=== PATIENT | male | born 1940 | race Caucasian/White ===

== ENCOUNTER 2017-12-03 20:01 | Emergency (ER) | payer OTHER ==
[2017-12-03] MEDS ORDERED: LIDOCAINE 1% W/EPI 1:100,000 MDV 50 ML VIAL ONE (20:54)
[2017-12-03] MEDS ORDERED: TETANUS & DIPHTHERIA TOX,ADULT 0.5 ML VIAL ONE (20:54)
--- NOTE | 2017-12-03 22:16 | EDPHYS ---
Physician Documentation [facility] Name: Evelio Tapia Jr Age: 77 yrs Sex: Male : 1940 Arrival Date: 12/03/2017 Time: 20:05 Bed 15 Private MD: Riky Gallegos V ED Physician Jaleel Ochoa HPI: 12/03 22:10 This 77 yrs old Male presents to ER via Ambulatory with complaints of Fall gs Injury, Knee Injury, Elbow Injury. 22:10 Details of fall: The patient fell from an upright position. Onset: The symptoms/episode gs began/occurred acutely, just prior to arrival. Associated injuries: The patient sustained palmar aspect of left forearm, abrasion, left knee, laceration, 3 cm(s). Severity of symptoms: At their worst the symptoms were moderate, in the emergency department the symptoms are unchanged. The patient has not experienced similar symptoms in the past. tripped over dog, needs td. Historical: - Allergies: 20:15 No Known Allergies; fc - Home Meds: 20:15 Cymbalta 30 mg oral cpDR 1 cap once daily [Active]; Multiple Vitamins oral tab daily fc [Active]; - PMHx: 20:15 Back pain; GERD; fc - PSHx: 20:15 Appendectomy; Cholecystectomy; Hernia repair; fc - Immunization history:: Last tetanus immunization: unknown. - Social history:: Smoking status: Patient/guardian denies using tobacco. - Ebola Screening: : Patient negative for fever greater than or equal to 101.5 degrees Fahrenheit, and additional compatible Ebola Virus Disease symptoms Patient denies exposure to infectious person Patient denies travel to an Ebola-affected area in the 21 days before illness onset. ROS: 22:10 All other systems are negative. gs Exam: 22:10 Head/Face: Normocephalic, atraumatic. Eyes: Pupils equal round and reactive to light, gs extra-ocular motions intact. Lids and lashes normal. Conjunctiva and sclera are non-icteric and not injected. Cornea within normal limits. Periorbital areas with no swelling, redness, or edema. ENT: Nares patent. No nasal discharge, no septal abnormalities noted. Tympanic membranes are normal and external auditory canals are clear. Oropharynx with no redness, swelling, or masses, exudates, or evidence of obstruction, uvula midline. Mucous membranes moist. Neck: Trachea midline, no thyromegaly or masses palpated, and no cervical lymphadenopathy. Supple, full range of motion without nuchal rigidity, or vertebral point tenderness. No Meningismus. Chest/axilla: Normal chest wall appearance and motion. Nontender with no deformity. No lesions are appreciated. Cardiovascular: Regular rate and rhythm with a normal S1 and S2. No gallops, murmurs, or rubs. Normal PMI, no JVD. No pulse deficits. Respiratory: Lungs have equal breath sounds bilaterally, clear to auscultation and percussion. No rales, rhonchi or wheezes noted. No increased work of breathing, no retractions or nasal flaring. Abdomen/GI: Soft, non-tender, with normal bowel sounds. No distension or tympany. No guarding or rebound. No evidence of tenderness throughout. Back: No spinal tenderness. No costovertebral tenderness. Full range of motion. MS/ Extremity: Pulses equal, no cyanosis. Neurovascular intact. Full, normal range of motion. Neuro: Awake and alert, GCS 15, oriented to person, place, time, and situation. Cranial nerves II-XII grossly intact. Motor strength 5/5 in all extremities. Sensory grossly intact. Cerebellar exam normal. Normal gait. 22:10 Constitutional: The patient appears alert, awake. 22:10 Musculoskeletal/extremity: Extremities: ROM: no acute changes, Circulation is intact in all extremities. Joints: the left knee and left elbow displays nl rom, no joint effusion. 22:10 Skin: injury, abrasion(s), very small abrasion noted, of the left elbow, laceration(s), the wound is approximately 3 cm(s), with a depth of 1 cm(s), of the left knee. Vital Signs: 20:11 BP 157 / 87; Pulse 90; Resp 20; Temp 98.6(O); Pulse Ox 98% on R/A; Weight 88.45 kg (R); fc Height 5 ft. 11 in. (180.34 cm) (R); Pain 3/10; 22:37 Pulse 89; Resp 17 S; Pulse Ox 98% on R/A; Pain 2/10; jd3 20:11 Body Mass Index 27.20 (88.45 kg, 180.34 cm) Upton Coma Score: 20:11 Eye Response: spontaneous(4). Verbal Response: oriented(5). Motor Response: obeys fc commands(6). Total: 15. Trauma Score (Adult): 20:11 Eye Response: spontaneous(1); Verbal Response: oriented(1); Motor Response: obeys fc commands(2); Systolic BP: > 89 mm Hg(4); Respiratory Rate: 10 to 29 per min(4); Alfred Score: 15; Trauma Score: 12 Laceration: 22:10 Wound Repair of 3cm ( 1.2in ) subcutaneous laceration to left knee. Irregularly gs shaped.. Moderate contamination.. Distal neuro/vascular/tendon intact. Anesthesia: Local anesthetic administered with 8 mls of 1% lidocaine w/ Epi. Wound prep: Moderate cleansing with betadine, Wound irrigation by me, Particulate matter removal of gravel, Wound margin revised minimally, Wound debrided moderately, Wound explored extensively, Copious irrigation, 3l of irrigation, removed manually and sharply visually all material, no extension visible into joint capsule, discussed infection risks closed 3 vm x 4-0 prolene. Skin closed with 3 4-0 Prolene using vertical mattress sutures and sterile technique. Patient tolerated well. MDM: 20:32 Patient medically screened. gs 22:10 Data reviewed: vital signs, nurses notes. gs 22:17 Counseling: I had a detailed discussion with the patient and/or guardian regarding: the gs presence of at least one elevated blood pressure reading (>120/80) during this emergency department visit. Special discussion: I have referred the patient to see his PCP for further evaluation of high blood pressure. 22:17 Special discussion: I discussed in detail with the patient the higher chance of wound gs infection based on his presenting history. 12/03 20:33 Order name: Knee Left 3 View XRAY gs Administered Medications: 20:57 Drug: Tetanus-Diphtheria Toxoid Adult 0.5 ml {Rehab Nursing Tech: [employer]. Exp: jd3 12/19/2019. Lot #: [id number]. } Route: IM; Site: right deltoid; 22:21 Follow up: Response: No adverse reaction jd3 21:50 Drug: Lidocaine-Epinephrine -1%: (1:100,000) 5 ml {Note: admiinistered by Dr. Ochoa.} jd3 Volume: 20 ml; Route: Infiltration; 22:21 Follow up: Response: No adverse reaction jd3 22:34 Drug: KeFLEX 1000 mg Route: PO; jd3 22:34 Follow up: Response: No adverse reaction jd3 Disposition: 12/03/17 22:15 Discharged to Home. Impression: Laceration with foreign body, left lower leg. - Condition is Stable. - Discharge Instructions: Laceration Care, Adult. - Prescriptions for Keflex 500 mg Oral Capsule - take 1 capsule by ORAL route every 12 hours for 5 days; 10 capsule. - Medication Reconciliation Form, Thank You Letter, Antibiotic Education, Prescription Opioid Use form. - Follow up: Emergency Department; When: 7 - 10 days; Reason: Staple/Suture removal. Signatures: Dispatcher [employer] EDUT Ligia Veras RN RN Jaleel Ochoa MD MD gs Davies, Jonathon, RN RN jd3 Corrections: (The following items were deleted from the chart) 21:02 20:52 Knee Left 3 View ordered. [facility] EDUT 22:37 22:15 12/03/2017 22:15 Discharged to Home. Impression: Laceration with foreign body, jd3 left lower leg. Condition is Stable. Forms are Medication Reconciliation Form, Thank You Letter, Antibiotic Education, Prescription Opioid Use. Follow up: Emergency Department; When: 7 - 10 days; Reason: Staple/Suture removal.
--- NOTE | 2017-12-03 22:16 | ER ---
Nurse's Notes [facility] Name: Evelio Tapia Jr Age: 77 yrs Sex: Male : 1940 Arrival Date: 12/03/2017 Time: 20:05 Bed 15 Private MD: Riky Gallegos V Diagnosis: Laceration with foreign body, left lower leg Presentation: 12/03 20:10 Presenting complaint: Patient states: that he was walking his dog and the dog took off fc and drug him. Pt now has abrasion to left elbow and laceration to left knee. Care prior to arrival: Bleeding of injury controlled. Ice pack applied to injury. Mechanism of Injury: Fall from standing position. Trauma event details: Injury occurred in the [facility], Injury occurred: on a street or highway. Injury occurred: December 03, 2017 Injury occurred at: 19:20. 20:10 Acuity: THOMAS 3 fc 20:10 Method Of Arrival: Ambulatory fc 20:12 Transition of care: patient was not received from another setting of care. Onset of fc symptoms was December 03, 2017 at 19:20. Risk Assessment: Do you want to hurt yourself or someone else? Patient reports no desire to harm self or others. Initial Sepsis Screen: Does the patient meet any 2 criteria? No. Patient's initial sepsis screen is negative. Does the patient have a suspected source of infection? No. Patient's initial sepsis screen is negative. Triage Assessment: 20:15 General: Appears uncomfortable, well groomed, Behavior is calm, cooperative, fc appropriate for age. Pain: Complains of pain in left arm and left leg Pain currently is 3 out of 10 on a pain scale. Quality of pain is described as aching, Pain began 1 hour ago. Is continuous, Aggravated by increased activity, repositioning, weight bearing. EENT: No deficits noted. Neuro: Level of Consciousness is awake, alert, obeys commands, Oriented to person, place, time, situation. Cardiovascular: No deficits noted. Respiratory: No deficits noted. GI: No deficits noted. : No deficits noted. Derm: Skin is pink, warm \T\ dry. Musculoskeletal: Circulation, motion, and sensation intact. Capillary refill < 3 seconds, Range of motion: intact in all extremities. Injury Description: Abrasion sustained to left elbow Laceration sustained to left knee. Historical: - Allergies: 20:15 No Known Allergies; fc - Home Meds: 20:15 Cymbalta 30 mg oral cpDR 1 cap once daily [Active]; Multiple Vitamins oral tab daily [Active]; - PMHx: 20:15 Back pain; GERD; fc - PSHx: 20:15 Appendectomy; Cholecystectomy; Hernia repair; fc - Immunization history:: Last tetanus immunization: unknown. - Social history:: Smoking status: Patient/guardian denies using tobacco. - Ebola Screening: : Patient negative for fever greater than or equal to 101.5 degrees Fahrenheit, and additional compatible Ebola Virus Disease symptoms Patient denies exposure to infectious person Patient denies travel to an Ebola-affected area in the 21 days before illness onset. Screenin:15 Abuse screen: Denies threats or abuse. Nutritional screening: No deficits noted. Tuberculosis screening: No symptoms or risk factors identified. 20:23 Fall Risk Fall in past 12 months (25 points). Ambulatory Aid- None/Bed Rest/Nurse jd3 Assist (0 pts). Gait- Normal/Bed Rest/Wheelchair (0 pts) Mental Status- Oriented to own ability (0 pts). Total Carbone Fall Scale indicates Low Risk Score (25-44 pts). Fall prevention measures have been instituted. Side Rails Up X 2 Placed close to Nursing Station Frequent Obs/Assesments occuring Family Present and informed to notify staff if they need to leave bedside. Assessment: 20:20 General: Appears in no apparent distress. uncomfortable, Behavior is calm, cooperative, jd3 appropriate for age. Pain: Complains of pain in left elbow and left knee Quality of pain is described as aching, tender. Neuro: Level of Consciousness is awake, alert, obeys commands, Oriented to person, place, time, situation. Cardiovascular: Capillary refill < 3 seconds Patient's skin is warm and dry. Respiratory: Airway is patent Respiratory effort is even, unlabored, Respiratory pattern is regular, symmetrical. GI: No signs and/or symptoms were reported involving the gastrointestinal system. : No signs and/or symptoms were reported regarding the genitourinary system. EENT: No signs and/or symptoms were reported regarding the EENT system. Derm: Skin is intact, Skin is dry, Skin is normal, Skin temperature is warm. Musculoskeletal: Circulation, motion, and sensation intact. Range of motion: intact in all extremities. Injury Description: Abrasion sustained to left elbow is scabbed, Laceration sustained to left knee is clean, 0.5 to 2.5 cm long, not bleeding, a small amount of bleeding noted at this time. 21:35 Reassessment: Patient appears in no apparent distress at this time. Patient and/or jd3 family updated on plan of care and expected duration. Pain level reassessed. Patient is alert, oriented x 3, equal unlabored respirations, skin warm/dry/pink. 22:35 Reassessment: Patient appears in no apparent distress at this time. Patient and/or jd3 family updated on plan of care and expected duration. Pain level reassessed. Patient is alert, oriented x 3, equal unlabored respirations, skin warm/dry/pink. pt reported understanding of discharge instructions, even and steady gait upon dishcarge. Vital Signs: 20:11 BP 157 / 87; Pulse 90; Resp 20; Temp 98.6(O); Pulse Ox 98% on R/A; Weight 88.45 kg (R); fc Height 5 ft. 11 in. (180.34 cm) (R); Pain 3/10; 22:37 Pulse 89; Resp 17 S; Pulse Ox 98% on R/A; Pain 2/10; jd3 20:11 Body Mass Index 27.20 (88.45 kg, 180.34 cm) fc Alfred Coma Score: 20:11 Eye Response: spontaneous(4). Verbal Response: oriented(5). Motor Response: obeys fc commands(6). Total: 15. Trauma Score (Adult): 20:11 Eye Response: spontaneous(1); Verbal Response: oriented(1); Motor Response: obeys fc commands(2); Systolic BP: > 89 mm Hg(4); Respiratory Rate: 10 to 29 per min(4); Hinckley Score: 15; Trauma Score: 12 ED Course: 20:05 Patient arrived in ED. es 20:05 Riky Gallegos MD is Private Physician. es 20:11 Triage completed. fc 20:12 Arm band placed on Patient placed in an exam room, on a stretcher. fc 20:17 Hung Zabala RN is Primary Nurse. jd3 20:18 Jaleel Ochoa MD is Attending Physician. gs 20:22 Patient has correct armband on for positive identification. Bed in low position. Call jd3 light in reach. Side rails up X 1. 21:04 Knee Left 3 View XRAY In Process Unspecified. EDMS 22:35 No provider procedures requiring assistance completed. Patient did not have IV access jd3 during this emergency room visit. Administered Medications: 20:57 Drug: Tetanus-Diphtheria Toxoid Adult 0.5 ml {Medical Technologist Blood Bank: [employer]. Exp: jd3 12/19/2019. Lot #: [id number]. } Route: IM; Site: right deltoid; 22:21 Follow up: Response: No adverse reaction jd3 21:50 Drug: Lidocaine-Epinephrine -1%: (1:100,000) 5 ml {Note: admiinistered by Dr. Ochoa.} jd3 Volume: 20 ml; Route: Infiltration; 22:21 Follow up: Response: No adverse reaction jd3 22:34 Drug: KeFLEX 1000 mg Route: PO; jd3 22:34 Follow up: Response: No adverse reaction jd3 Outcome: 22:15 Discharge ordered by . 22:35 Discharged to home ambulatory. jd3 22:35 Condition: stable 22:35 Discharge instructions given to patient, Instructed on discharge instructions, follow up and referral plans. medication usage, Demonstrated understanding of instructions, follow-up care, medications, Prescriptions given X 1. 22:37 Patient left the ED. jd3 Signatures: Dispatcher [employer] Carla Montejo Felicia, RN RN fc Starr, Gregory, MD MD gs Davies, Jonathon, RN RN jveronica
[2017-12-03] MEDS ORDERED: CEPHALEXIN 250 MG CAP ONE (22:27)
[2017-12-03 22:42] VITALS: BP 157/87; TEMP 98.6; O2SAT 98
--- NOTE | 2017-12-04 08:55 | RAD REPORT ---
EXAM DESCRIPTION: RAD - Knee Left 3 View - 12/03/2017 9:10 pm CLINICAL HISTORY: Left knee pain status post injury FINDINGS: No fracture or dislocation is seen. Chondrocalcinosis is suspected.
== END 2017-12-03 22:37 | disposition home or self-care (01) ==
LOC: ER 20:01
PROC: 0JQP0ZZ Repair Left Lower Leg Subcutaneous Tissue and Fascia, Open Approach (ICD-10-PCS; principal; 2017-12-03)
DX: S50.812A Abrasion of left forearm, initial encounter (principal); S81.022A Laceration with foreign body, left knee, initial encounter; W18.31XA Fall on same level due to stepping on an object, initial encounter; Y93.01 Activity, walking, marching and hiking; Y92.019 Unspecified place in single-family (private) house as the place of occurrence of the external cause
CPT/HCPCS: 90714; 99283

== ENCOUNTER 2020-08-02 22:20 | Emergency (ER) | payer OTHER ==
--- OUTSIDE RECORDS SUMMARY | 2020-08-02 22:24 | XMS REPORT | Continuity of Care Document ---
:1940 Author Organization [facility] t Address [address] [place] [address] Dr. Geller [address] [place] [id number] Care Team Providers Name Role Phone JONI Attending Clinician Unavailable Problems This patient has no known problems. Allergies, Adverse Reactions, Alerts This patient has no known allergies or adverse reactions. Medications This patient has no known medications. Procedures This patient has no known procedures. Encounters Start End Encounter Admission Attending Care Care Encounter Source Date/Time Date/Time Type Type Clinicians Facility Department ID 2019-10-26 2019-10-26 Outpatient [facility] [id number] 00:00:00 00:00:00 [address]OB [address] 2019-10-26 2019-10-26 Outpatient [facility] [id number] 00:00:00 00:00:00 JOB [address] Results This patient has no known results.
--- NOTE | 2020-08-03 00:01 | EDPHYS ---
Physician Documentation [facility] Name: Evelio Tapia Jr Age: 80 yrs Sex: Male : 1940 Arrival Date: 08/02/2020 Time: 22:21 Bed 4 Private MD: ED Physician Jack Yarbrough HPI: 08/02 22:45 This 80 yrs old Male presents to ER via EMS with complaints of Fall Injury. cp 22:45 Details of fall: The patient fell from an upright position, while walking. Onset: The cp symptoms/episode began/occurred today. Associated injuries: The patient sustained injury to the head, contusion. Patient denies LOC. Reports stumbling forward and striking head against door. Historical: - Allergies: 22:30 No Known Allergies; - Home Meds: 22:30 Cymbalta oral [Active]; duloxetine oral oral [Active]; Statin [Active]; - PMHx: 22:30 Back pain; GERD; - PSHx: 22:30 Appendectomy; Cholecystectomy; - Immunization history:: Adult Immunizations up to date. - Social history:: Smoking status: Patient/guardian denies using. ROS: 22:50 Constitutional: Negative for body aches, chills, fever, poor PO intake. cp 22:50 Neck: Negative for pain with movement, pain at rest, stiffness. cp 22:50 Cardiovascular: Negative for chest pain. 22:50 Respiratory: Negative for cough, shortness of breath, wheezing. 22:50 Abdomen/GI: Negative for abdominal pain, nausea, vomiting, and diarrhea. 22:50 Back: Negative for pain at rest, pain with movement. 22:50 Neuro: Negative for altered mental status, dizziness, loss of consciousness, syncope, weakness. 22:50 All other systems are negative. Exam: 22:55 Constitutional: The patient appears in no acute distress, alert, awake, cp non-diaphoretic, non-toxic, well developed, well nourished. 22:55 Head/face: Noted is contusion, that is superficial, of the top of head. cp 22:55 Eyes: Periorbital structures: appear normal, Pupils: equal, round, and reactive to light and accomodation, Extraocular movements: intact throughout, Conjunctiva: normal, no exudate, no injection, Sclera: no appreciated abnormality, Lids and lashes: appear normal, bilaterally. 22:55 ENT: External ear(s): are unremarkable, Nose: is normal, Mouth: Lips: moist, Oral mucosa: moist, Posterior pharynx: Airway: no evidence of obstruction, patent. 22:55 Neck: C-spine: vertebral tenderness, is not appreciated, crepitus, is not appreciated, ROM/movement: is normal, is supple, without pain, no range of motions limitations. 22:55 Chest/axilla: Inspection: normal, Palpation: is normal, no crepitus, no tenderness. 22:55 Cardiovascular: Rate: normal. 22:55 Respiratory: the patient does not display signs of respiratory distress, Respirations: normal, no use of accessory muscles. 22:55 Abdomen/GI: Inspection: abdomen appears normal, Palpation: abdomen is soft and non-tender, in all quadrants. 22:55 Back: pain, is absent, ROM is normal. 22:55 Neuro: Orientation: to person, place \T\ time. Mentation: is normal, Motor: moves all fours, strength is normal. Vital Signs: 22:26 BP 165 / 90; Pulse 83; Resp 18; Temp 98; Pulse Ox 97% ; Weight 90.72 kg; Height 5 ft. wh 10 in. (177.80 cm); Pain 2/10; 08/03 00:00 BP 154 / 86; Pulse 80; Resp 18; Pulse Ox 98% on R/A; 08/02 22:26 Body Mass Index 28.70 (90.72 kg, 177.80 cm) MDM: 08/02 22:25 Patient medically screened. [facility] 08/03 00:00 Data reviewed: vital signs, nurses notes, radiologic studies, CT scan. 00:00 Counseling: I had a detailed discussion with the patient and/or guardian regarding: the historical points, exam findings, and any diagnostic results supporting the discharge/admit diagnosis, radiology results, to return to the emergency department if symptoms worsen or persist or if there are any questions or concerns that arise at home. Special discussion: Based on the patient's history, exam and DX evaluation, there is no indication for emergent intervention or inpatient TX. It is understood by the patient/guardian that if the SXs persist or worsen they need to return immediately for re-evaluation. 08/02 22:39 Order name: CT Head C Spine cp Administered Medications: No medications were administered Disposition: 00:20 Chart complete. cp 06:49 Co-signature as Attending Physician, Jack Yarbrough MD I agree with the assessment and [facility] plan of care. Disposition: 08/03/20 00:00 Discharged to Home. Impression: Contusion of unspecified part of head. - Condition is Stable. - Discharge Instructions: Facial or Scalp Contusion, Head Injury, Adult. - Medication Reconciliation Form, Thank You Letter, Antibiotic Education, Prescription Opioid Use form. - Follow up: Emergency Department; When: As needed; Reason: Worsening of condition. - Problem is new. - Symptoms have improved. Signatures: Dispatcher [employer] EDMS Jack Yarbrough MD MD cha Page, Corey, PA PA Feroz Leavitt, RN RN Corrections: (The following items were deleted from the chart) 00:15 00:00 08/03/2020 00:00 Discharged to Home. Impression: Contusion of unspecified part of wh head. Condition is Stable. Forms are Medication Reconciliation Form, Thank You Letter, Antibiotic Education, Prescription Opioid Use. Follow up: Emergency Department; When: As needed; Reason: Worsening of condition. Problem is new. Symptoms have improved. cp
--- NOTE | 2020-08-03 00:01 | ER ---
Nurse's Notes [facility] [place] Name: Evelio Tapia Jr Age: 80 yrs Sex: Male : 1940 Arrival Date: 08/02/2020 Time: 22:21 Bed 4 Private MD: Diagnosis: Contusion of unspecified part of head Presentation: 08/02 22:26 Chief complaint: EMS states: Pt tripped and fell forward hitting head on a door and wh then fell backwards. Pt denies LOC and is not on blood thinners. Pt only C/O top of head and left arm. Pt with intact ROM. Coronavirus screen: Client denies travel out of the [place] in the last 14 days. At this time, the client does not indicate any symptoms associated with coronavirus-19. Ebola Screen: Patient negative for fever greater than or equal to 101.5 degrees Fahrenheit, and additional compatible Ebola Virus Disease symptoms Patient denies exposure to infectious person. Initial Sepsis Screen: Does the patient meet any 2 criteria? No. Patient's initial sepsis screen is negative. Does the patient have a suspected source of infection? No. Patient's initial sepsis screen is negative. Risk Assessment: Do you want to hurt yourself or someone else? Patient reports no desire to harm self or others. Onset of symptoms was August 02, 2020. 22:26 Method Of Arrival: EMS: [facility] 22:26 Acuity: THOMAS 3 Historical: - Allergies: 22:30 No Known Allergies; - Home Meds: 22:30 Cymbalta oral [Active]; duloxetine oral oral [Active]; Statin [Active]; - PMHx: 22:30 Back pain; GERD; - PSHx: 22:30 Appendectomy; Cholecystectomy; - Immunization history:: Adult Immunizations up to date. - Social history:: Smoking status: Patient/guardian denies using. Screenin:30 Abuse screen: Denies threats or abuse. Denies injuries from another. Nutritional screening: No deficits noted. Tuberculosis screening: No symptoms or risk factors identified. Fall Risk Fall in past 12 months (25 points). Assessment: 22:30 General: Appears in no apparent distress. Behavior is calm, cooperative, appropriate for age. Pain: Complains of pain in left arm and top of the head Pain currently is 2 out of 10 on a pain scale. Neuro: Level of Consciousness is awake, alert, obeys commands, Oriented to person, place, time, situation, Appropriate for age. Cardiovascular: Capillary refill < 3 seconds. Respiratory: Airway is patent Respiratory effort is even, unlabored, Respiratory pattern is regular, symmetrical. GI: Abdomen is flat, non-distended. : No signs and/or symptoms were reported regarding the genitourinary system. EENT: No signs and/or symptoms were reported regarding the EENT system. Derm: Skin is intact. Musculoskeletal: Range of motion: intact in all extremities. 08/03 00:00 Reassessment: Patient appears in no apparent distress at this time. No changes from previously documented assessment. Patient and/or family updated on plan of care and expected duration. Pain level reassessed. Patient is alert, oriented x 3, equal unlabored respirations, skin warm/dry/pink. Vital Signs: 08/02 22:26 BP 165 / 90; Pulse 83; Resp 18; Temp 98; Pulse Ox 97% ; Weight 90.72 kg; Height 5 ft. 10 in. (177.80 cm); Pain 2/10; 08/03 00:00 BP 154 / 86; Pulse 80; Resp 18; Pulse Ox 98% on R/A; 03 22:26 Body Mass Index 28.70 (90.72 kg, 177.80 cm) ED Course: 08/02 22:21 Patient arrived in ED. cl3 22:23 [facility] cp 22:23 Jack Yarbrough MD is Attending Physician. cp 22:26 Feroz Louis, JOSE is Primary Nurse. 22:29 Triage completed. 22:31 Patient has correct armband on for positive identification. Bed in low position. Call light in reach. Side rails up X 1. Pulse ox on. NIBP on. 22:31 Arm band placed on right wrist. 23:38 CT Head C Spine In Process Unspecified. EDMS 08/03 00:15 No provider procedures requiring assistance completed. Patient did not have IV access during this emergency room visit. Administered Medications: No medications were administered Outcome: 00:00 Discharge ordered by . 00:15 Discharged to home ambulatory. 00:15 Condition: stable 00:15 Discharge instructions given to patient, Instructed on discharge instructions, follow up and referral plans. POC Demonstrated understanding of instructions, follow-up care, POC 00:15 Patient left the ED. Signatures: Dispatcher [employer] EDMS Jack Le PA PA cp Habalo, Winsy, RN RN Aramis Acosta cl3
[2020-08-03 00:19] VITALS: TEMP 98
[2020-08-03 00:21] VITALS: BP 154/86; O2SAT 98
--- NOTE | 2020-08-03 09:43 | RAD REPORT ---
EXAM DESCRIPTION: 1. CT of the head without contrast 2. CT of the cervical spine without contrast. CLINICAL HISTORY: Fall;Pain COMPARISON: None available TECHNIQUE: Axial CT of the head obtained from the skull apex to the skull base without contrast. Axi al CT images of the cervical spine obtained from the skull base through the thoracic inlet. Sagittal and coronal reformatted images available. This exam was performed according to our departmental dose- optimization program, which includes automated exposure control, adjustment of the mA and/or kV accor ding to patient size and/or use of iterative reconstruction technique. FINDINGS: CT head: No acute intracranial hemorrhage identified. No mass, mass effect, shift of the midline, abnormal ext ra-axial fluid collection or CT evidence of acute ischemic change identified. Mild enlargement of nora tricular system and sulcal spaces compatible with atrophy. Scattered areas of hypodensity throughou t the supratentorial white matter are nonspecific and may represent sequela of chronic small vessel i schemic change. The visualized paranasal sinuses and the mastoids are clear. No skull fracture identified. Visualiz ed orbits and globes are unremarkable. Cervical CT: Straining of the cervical lordosis may be secondary to patient positioning. The atlantoaxial, atlan todental, and occipitoatlantal intervals are preserved. No fracture identified. Vertebral body heig ht preserved. Prevertebral soft tissues are unremarkable. Osteophytic spurring of the atlantodental articulation with subchondral sclerosis and cystic change. Moderate to severe multilevel loss of intervertebral disc height with endplate spondylosis, uncoverte bral spurring, and facet arthropathy. Posterior disc osteophyte complexes encroach on the thecal sac and neural foramen at multiple locations. Visualized skull base is intact. No fracture of the visualized facial bones. Visualized mastoid air c ells and paranasal sinuses are well aerated. Visualized thyroid is unremarkable. No cervical lymphadenopathy. No pneumothorax in the visualized lung apices. IMPRESSION: 1. No acute intracranial abnormality. 2. No acute fracture or subluxation of the cervical spine. 3. 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 Electronically signed by: Davy Casanova 08/02/2020 11:48 PM CDT Due to temporary technical issues with the PACS/Fluency reporting system, reports are being signed by the in house radiologist without review as a courtesy to ensure prompt reporting. The interpreting r adiologist is fully responsible for the content of the report.
== END 2020-08-03 00:15 | disposition home or self-care (01) ==
LOC: ER 22:20
DX: S00.83XA Contusion of other part of head, initial encounter (principal); W22.8XXA Striking against or struck by other objects, initial encounter; Y93.01 Activity, walking, marching and hiking; Y92.9 Unspecified place or not applicable; K21.9 Gastro-esophageal reflux disease without esophagitis
CPT/HCPCS: 70450; 72125; 99283